=== PATIENT | male | born 1990 | race Caucasian/White ===

== ENCOUNTER 2018-03-26 04:01 | Inpatient (IN) | payer OTHER ==
[~2018-03-26] VITALS: Ht 182.9 cm; Wt 77.1 kg
[2018-03-26 05:16] LABS: BASOPHILS ABSOLUTE AUTO 0.03 K/mm3 (0.00-0.23); BASOPHILS PERCENT AUTO 1 % (0-2); EOSINOPHILS ABSOLUTE AUTO 0.31 K/mm3 (0.00-0.68); EOSINOPHILS PERCENT AUTO 5 % (0-6); IMMATURE GRAN ABSOLUTE AUTO 0.03 K/mm3 (0.00-0.10); IMMATURE GRAN PERCENT AUTO 1 % (0-1); LYMPHOCYTES ABSOLUTE AUTO 1.59 K/mm3 (0.84-5.20); LYMPHOCYTES PERCENT AUTO 27 % (21-46); MONOCYTES ABSOLUTE AUTO 0.59 K/mm3 (0.16-1.47); MONOCYTES PERCENT AUTO 10 % (4-13); Mean Corpuscular HGB 29.3 pg (26.0-34.0); Mean Corpuscular HGB Conc 33.3 g/dL (31.5-36.5); Mean Corpuscular Volume 88 fL (80-100); Mean Platelet Volume 9.1 fL (9.1-12.4); NEUTROPHILS ABSOLUTE AUTO 3.27 K/mm3 (1.96-9.15); NEUTROPHILS PERCENT AUTO 56 % (41-73); Platelet Count 320 K/mm3 (150-400); RDW Coefficient Variation 13.6 % (11.7-14.2); RDW Standard Deviation 44.3 fL (35.1-46.3); Red Blood Cell Count 4.44 M/mm3 (4.30-5.90); White Blood Cell Count 5.82 K/mm3 (4.00-11.30)
[2018-03-26 05:45] LABS: Alanine Aminotransfer (ALT/SGP 34 U/L (12-78); Albumin, Blood 2.8 g/dL (3.4-5.0); Albumin/Globulin Ratio 0.7 (0.8-1.8); Alk Phos 76 U/L (50-136); Anion Gap 7 mmol/L (6-16); Aspartate Aminotrans (AST/SGOT 21 U/L (12-37); Bilirubin, Total 0.2 mg/dL (0.1-1.0); Blood Urea Nitrogen 11 mg/dL (8-24); Bun/Creatinine Ratio 10.6 (12.0-20.0); CO2, Blood 30 mmol/L (21-32); Calcium, Blood 8.4 mg/dL (8.5-10.1); Chloride, Blood 104 mmol/L (98-108); Creatinine, Blood 1.04 mg/dL (0.60-1.20); Globulin, Blood 4.3 g/dL (2.2-4.0); Glomerular Filtration Rate >60 (60-); Glucose, Blood 113 mg/dL (70-99); Potassium, Blood 3.7 mmol/L (3.5-5.5); Sodium, Blood 141 mmol/L (136-145); Total Protein, Blood 7.1 g/dL (6.4-8.2)
--- NOTE | 2018-03-26 07:29 | NUR ---
PATIENT IS A NEW ADMIT FROM THE ED. SBA TRANSFER FROM [facility] TO BED. PATIENT ORIENTED TO ROOM AND CALL LIGHT SYSTEM. VANCO INFUSING FROM THE ED. PATIENT REPORTS TOOTH PAIN AND HEADACHE. TYLENOL GIVEN PER EMAR. CALL LIGHT IN REACH.
--- NOTE | 2018-03-26 16:13 | NUR ---
SHIFT SUMMARY- PT DENIES PAIN THIS AM. PT SLEPT IN TO THE AFTERNOON. WHEN PT WOKE UP THIS AFTERNOON HE WAS IRRITABLE AND C/O PAIN. MEDS GIVEN PER EMAR. INFORMED PT ORDERED A UA AND WE NEED A URINE SAMPLE. PT WENT TO THE BATHROOM INDEPENDENTLY AND UPON RETURNING TOLD CLIENT SERVICES SPECIALIST THAT HE COULD NOT PEE TO GIVE A SAMPLE. PT IS ASLEEP AGAIN THIS PM. PT DENIES N/V. PT DENIES SOB. LLE PINK, WARM AND SWOLLEN. NSR AT 71 PER PCU MANAGER ACCOUNT MANAGEMENT. NO OTHER SIGNIFICANT CHANGES THIS SHIFT.
[2018-03-26 18:33] LABS: U Amphetamine Screen DETECTED; U Barbituate Screen Not Detected; U Benzodiazapine Screen Not Detected; U Buprenorphine Screen Not Detected; U Cannabinoids Screen DETECTED; U Cocaine Screen Not Detected; U Methadone Screen Not Detected; U Methamphetamine Screen DETECTED; U Opiates Screen DETECTED; U Oxycodone Screen Not Detected; U Phencyclidine Screen Not Detected; U Propoxyphene Screen Not Detected
--- NOTE | 2018-03-26 18:59 | NUR ---
NOTIFIED DR. CORTÉS PT TESTED POSITIVE FOR METH, BENZOS, MARIJUANA AND OPIATES. NO NEW ORDERS AT THIS TIME.
--- NOTE | 2018-03-27 03:19 | NUR ---
PT CONTINUES ON VANCO PER PHARMACY WITH VANCO TROUGH THIS AM PRIOR TO NEXT DOSE. ON ZOSYN FOR CELLULITIS AND INJECTION SITE ABSCESS WITH IMPROVENT NOTED. SW REFERRAL FOR SUBTANCE ABUSE INCLUDING INJECTION OF HEROIN, QUIET WITHDRAWN BUT COOPERATIVE. ON TELE NSR. DENIES NEED FOR PAIN MEDS.
[2018-03-27 05:00] LABS: BASOPHILS ABSOLUTE AUTO 0.05 K/mm3 (0.00-0.23); BASOPHILS PERCENT AUTO 1 % (0-2); EOSINOPHILS ABSOLUTE AUTO 0.28 K/mm3 (0.00-0.68); EOSINOPHILS PERCENT AUTO 6 % (0-6); Hematocrit 41.3 % (37.0-53.0); Hemoglobin 13.5 g/dL (13.5-17.5); IMMATURE GRAN ABSOLUTE AUTO 0.02 K/mm3 (0.00-0.10); IMMATURE GRAN PERCENT AUTO 0 % (0-1); LYMPHOCYTES ABSOLUTE AUTO 1.82 K/mm3 (0.84-5.20); LYMPHOCYTES PERCENT AUTO 38 % (21-46); MONOCYTES ABSOLUTE AUTO 0.39 K/mm3 (0.16-1.47); MONOCYTES PERCENT AUTO 8 % (4-13); Mean Corpuscular HGB 28.7 pg (26.0-34.0); Mean Corpuscular HGB Conc 32.7 g/dL (31.5-36.5); Mean Corpuscular Volume 88 fL (80-100); Mean Platelet Volume 8.8 fL (9.1-12.4); NEUTROPHILS ABSOLUTE AUTO 2.18 K/mm3 (1.96-9.15); NEUTROPHILS PERCENT AUTO 46 % (41-73); Platelet Count 329 K/mm3 (150-400); RDW Coefficient Variation 13.5 % (11.7-14.2); RDW Standard Deviation 43.4 fL (35.1-46.3); White Blood Cell Count 4.74 K/mm3 (4.00-11.30)
[2018-03-27 05:28] LABS: Alanine Aminotransfer (ALT/SGP 28 U/L (12-78); Albumin, Blood 2.7 g/dL (3.4-5.0); Albumin/Globulin Ratio 0.6 (0.8-1.8); Alk Phos 75 U/L (50-136); Anion Gap 8 mmol/L (6-16); Aspartate Aminotrans (AST/SGOT 19 U/L (12-37); Bilirubin, Total 0.5 mg/dL (0.1-1.0); Blood Urea Nitrogen 7 mg/dL (8-24); Bun/Creatinine Ratio 7.6 (12.0-20.0); CO2, Blood 26 mmol/L (21-32); Calcium, Blood 8.3 mg/dL (8.5-10.1); Chloride, Blood 104 mmol/L (98-108); Creatinine, Blood 0.92 mg/dL (0.60-1.20); Globulin, Blood 4.4 g/dL (2.2-4.0); Glomerular Filtration Rate >60 (60-); Glucose, Blood 128 mg/dL (70-99); Potassium, Blood 3.7 mmol/L (3.5-5.5); Sodium, Blood 138 mmol/L (136-145); Total Protein, Blood 7.1 g/dL (6.4-8.2); Vancomycin, Trough 13.5 ug/mL (5.0-10.0)
--- NOTE | 2018-03-27 08:19 | NUR ---
NOTIFIED DR. CORTÉS LAB CALLED AND SAID PT'S BLOOD CULTURES ARE POSITIVE THAT HE HAS GRAM POSITIVE COXI IN [place]. NO NEW ORDERS AT THIS TIME.
--- NOTE | 2018-03-27 12:09 | NUR ---
DR. CORTÉS PLANNED TO D/C PT AFTER PT RECIEVED HIS AFTERNOON VANCO AND ZOSYN. WHEN I ENTERED PT'S ROOM FOUND PT'S IV AND TELE IN THE ROOM. PT NOT IN THE ROOM. NOTIFIED DR. CORTÉS AND CHARGE, PATRIC HENSON.
== END 2018-03-27 12:05 | disposition left against medical advice (07) | DRG 603 ==
LOC: ER 04:01 → MEDS 04:43
PROVIDERS: Emergency Medicine; Family Medicine; ADMIT Internal Medicine
PROC: 3E0234Z Introduction of Serum, Toxoid and Vaccine into Muscle, Percutaneous Approach (ICD-10-PCS; principal; 2018-03-26)
DX: L03.116 Cellulitis of left lower limb (principal); L03.113 Cellulitis of right upper limb; F19.20 Other psychoactive substance dependence, uncomplicated; F17.210 Nicotine dependence, cigarettes, uncomplicated; Z23 Encounter for immunization
CPT/HCPCS: 36415; 73600; 76882; 80053; 80202; 83605; 85025; 85027; 87040; 90714; 96374; 99284-25; J1650; J2543; J3370; J7030